=== PATIENT | female | born 1960 | race Caucasian/White ===

== ENCOUNTER 2016-11-12 16:38 | Emergency (ER) | payer OTHER ==
--- OUTSIDE RECORDS SUMMARY | 2016-11-12 16:41 | XMS | Clinical Summary ---
:1960 Author Organization [facility] Address [address] [place] [address] Phone Care Team Providers Name Role Phone , Primary Care Provider Unavailable Allergies Not on File Current Medications Not on file Active Problems Not on file Social History Tobacco Use Types Packs/Day Years Used Date Never Assessed Sex Assigned at Date Recorded Not on file Last Filed Vital Signs Not on file Plan of Treatment Not on file Results Not on filefrom Last 3 Months
== END 2016-11-12 18:19 | disposition left against medical advice (07) ==
LOC: ERS 16:38
DX: Z53.21 Procedure and treatment not carried out due to patient leaving prior to being seen by health care provider (principal)
CPT/HCPCS: 87081; 87430

== ENCOUNTER 2016-11-13 13:15 | Emergency (ER) | payer OTHER ==
--- OUTSIDE RECORDS SUMMARY | 2016-11-13 13:17 | XMS | Clinical Summary ---
:1960 Author Organization [facility] Address [address] [place] [address] Phone Care Team Providers Name Role Phone [...]
[2016-11-13 14:21] LABS: #Basophils 0.1 thou/uL (0.0-0.2); #Eosinphils 0.1 thou/uL (0.0-0.7); #Lymphocytes 1.5 thou/uL (1.20-3.40); #Monocytes 0.7 thou/uL (0.11-0.59); #Neutrophils 5.9 thou/uL (1.40-6.50); %Basophils 1.1 % (0.0-1.0); %Eosinophils 0.9 % (0.0-10.0); %Lymphocytes 18.6 % (21.0-51.0); Mean Platelet Volume 6.3 fL (7.4-10.4); Red Blood Cell (RBC) Count 4.09 mill/uL (4.20-5.40); White Blood Cell (WBC) Count 8.3 thou/uL (4.8-10.8)
[2016-11-13 14:33] LABS: Macrocytosis SLIGHT = 6-15 cells (100X) (0-5/hpf)
[2016-11-13 14:34] LABS: ALT (SGPT) 10 U/L (8-55); AST (SGOT) 31 U/L (5-34); Alkaline Phosphatase 84 U/L (40-150); Anion Gap 18 mmol/L (10-20); BUN (Urea Nitrogen) 13 mg/dL (9.8-20.1); Bilirubin, Total 0.9 mg/dL (0.2-1.2); Calc. Creatinine Clearance 0 mL/min (70-130); Calcium 9.9 mg/dL (7.8-10.44); Carbon Dioxide 26 mmol/L (22-29); Chloride 96 mmol/L (98-107); Estimated GFR-MDRD 90; Globulin 3.4 g/dL (2.4-3.5); Lipase 11 U/L (8-78)
--- NOTE | 2016-11-13 16:46 | RAD ---
SINGLE VIEW OF CHEST: Date: 11/13/16 COMPARISON: None. HISTORY: Vomiting for 3-4 days with productive cough. FINDINGS: Single view of the chest shows a normal sized cardiomediastinal silhouette. There is no evidence of consolidation, mass, or pleural effusion. Hardware is seen in the cervical spine. IMPRESSION: No evidence of acute cardiopulmonary disease. POS: [facility]
[2016-11-13] MEDS ORDERED: Ondansetron ODT 4 MG TAB ONE (16:51)
[2016-11-13] MEDS ORDERED: Ketorolac Tromethamine 30 MG/ML VIAL ONE (16:51)
[2016-11-13] MEDS ORDERED: Dexamethasone 4 mg/ml Vial ONE (16:51)
[2016-11-13 17:12] LABS: Troponin I Less than 0.010 ng/mL (< 0.028)
[2016-11-13] MEDS ORDERED: cloNIDine HCl 0.1 MG TAB ONE (17:55)
== END 2016-11-13 19:23 | disposition home or self-care (01) ==
LOC: ERS 13:15
DX: I10 Essential (primary) hypertension (principal); J40 Bronchitis, not specified as acute or chronic; F17.210 Nicotine dependence, cigarettes, uncomplicated
CPT/HCPCS: 36415; 71010; 80053; 82553; 83690; 84484; 85025; 87081; 87430; 96372; J1100; J1885; Q0162

== ENCOUNTER 2017-05-04 16:09 | Outpatient (CLI) | payer OTHER | END 2017-05-04 16:10 | disposition home or self-care (01) | LOC: BICMAMMO 16:09 | PROVIDERS: ATTEND Family Medicine | DX: Z12.31 Encounter for screening mammogram for malignant neoplasm of breast (principal) | CPT/HCPCS: 77063; 77067 ==

== ENCOUNTER 2017-05-08 09:35 | Outpatient (CLI) | payer OTHER | END 2017-05-08 09:36 | disposition home or self-care (01) | LOC: BICMAMMO 09:35 | PROVIDERS: ATTEND Family Medicine | DX: R92.8 Other abnormal and inconclusive findings on diagnostic imaging of breast (principal) | CPT/HCPCS: G0279 ==

== ENCOUNTER → 2017-05-16 | Day surgery (SDC) | payer OTHER | LOC: BICULT 11:17 | PROVIDERS: ATTEND Family Medicine | PROC: 0HBT3ZX Excision of Right Breast, Percutaneous Approach, Diagnostic (ICD-10-PCS; principal; 2017-05-16) | DX: D24.1 Benign neoplasm of right breast (principal); Z88.0 Allergy status to penicillin | CPT/HCPCS: 19083; 88305 ==

== ENCOUNTER 2018-05-21 08:00 | Emergency (ER) | payer BC ==
[2018-05-21] MEDS ORDERED: Ketorolac Tromethamine 60 MG/2 ML VIAL ONE (08:39)
--- NOTE | 2018-05-21 09:17 | RAD ---
THORACIC SPINE 3 VIEWS: INDICATION: Trauma with back pain. FINDINGS: There is an ACDF at C7-T1 and C3-4. There is multilevel mild degenerative disk disease. There is sl ight rightward curvature of the thoracic spine centered at T12. Visualized lungs are clear. No acut e fracture is evident. IMPRESSION: Mild spondylosis of the thoracic spine. Postoperative change of the cervicothoracic junction and cer vical spine. POS: [facility]
--- NOTE | 2018-05-21 09:20 | CT ---
FExam: CT cervical spine without contrast HISTORY: Trauma. Pain. Status post fall. COMPARISON: None FINDINGS: No craniocervical dissociation. Appropriate alignment of the lateral masses of C1 and C2. A ppropriate alignment of the facets. Intact odontoid process Extensive cervical fusion from C3 through T1. No laury hardware lucency. Cervical spine vertebral body height is maintained. No fracture. Soft tissue neck structures are unremarkable. Varying degrees of central canal stenosis and neural foraminal narrowing on the basis of degenerative change. Evaluation is limited due to technique There is straightening of the upper mediastinal fat, nonspecific Because lung apices are unremarkable Straightening of normal cervical lordosis is preserved to be due to cervical fusion. There is concern for ligament injury, consider MRI. IMPRESSION: 1. Uncomplicated cervical fusion. Straightening of normal cervical lordosis as detailed above. If th ere is concern for ligamentous injury, consider MRI 2. Cervical spine vertebral body height is maintained. No fracture. 3. Nonspecific stranding of the upper mediastinal fat, probably paraesophageal in location.
== END 2018-05-21 09:30 | disposition home or self-care (01) ==
LOC: ERS 08:00
DX: S16.1XXA Strain of muscle, fascia and tendon at neck level, initial encounter (principal); S29.012A Strain of muscle and tendon of back wall of thorax, initial encounter; I10 Essential (primary) hypertension; F17.210 Nicotine dependence, cigarettes, uncomplicated; Z79.899 Other long term (current) drug therapy; W01.198A Fall on same level from slipping, tripping and stumbling with subsequent striking against other object, initial encounter
CPT/HCPCS: 72072; 72125; 96372; J1885

== ENCOUNTER 2019-05-11 19:45 | Emergency (ER) | payer BC ==
[2019-05-11] MEDS ORDERED: diphenhydrAMINE 50 MG/ML VIAL ONE (19:48)
[2019-05-11] MEDS ORDERED: Lorazepam 2 MG/ML VIAL ONE (19:48)
--- NOTE | 2019-05-11 20:10 | RAD ---
EXAM: Single view of the chest HISTORY: Shortness of breath and cough COMPARISON: 11/13/2016 FINDINGS: Single view of the chest shows a normal sized cardiomediastinal silhouette. There is no lurdes dence of consolidation, mass, or pleural effusion. Hardware seen in the spine. IMPRESSION: No evidence of acute cardiopulmonary disease
[2019-05-11 20:14] LABS: Actual Bicarbonate (HCO3a) 21.1 mEq/L (22-28); Analyzer IN Cardio ER; Base Excess (BEa) -4.1 mEq/L (-2.0 to +3.0); CO2 Tension 39.1 mmHg (35.0-45.0); Calcium, Ionized 1.12 mmol/L (1.12-1.30); Carboxyhemoglobin (COHb) 4.9 gm% (0.0-3.0); Hemoglobin (Hb) 14.4 g/dL (12.0-16.0); O2 Tension (PaO2) 69.7 mmHg (80.0-100.0); Potassium - ABG Lab 3.62 mmol/L (3.70-5.30); pH, Arterial 7.35 (7.35-7.45)
[2019-05-11 20:21] LABS: Hemoglobin 14.9 g/dL (12.0-16.0); Mean Corpuscular HGB CONC 35.9 g/dL (32.0-36.0); Mean Corpuscular Hemoglobin 35.6 pg (27.0-31.0); Mean Corpuscular Volume 99.2 fL (78.0-98.0); Mean Platelet Volume 6.8 fL (7.4-10.4); Platelet Count 444 thou/uL (130-400); RBC Distribution Width 11.9 % (11.5-14.5); Red Blood Cell (RBC) Count 4.18 mill/uL (4.20-5.40); White Blood Cell (WBC) Count 11.1 thou/uL (4.8-10.8)
[2019-05-11] MEDS ORDERED: Azithromycin 500 MG VIAL ONE (20:25)
[2019-05-11] MEDS ORDERED: cefTRIAXone\\ROCEPHIN 1 GM VIAL ONE (20:25)
[2019-05-11 20:44] LABS: Eosinophils 2 % (0-10); Lymphocytes 54 % (21-51); MDiff Complete? YES; Monocytes 3 % (0-10); Neutrophil 41 % (42-75); Platelet Morphology Comment Appears Increased
[2019-05-11 20:46] LABS: ALT (SGPT) Less than 7 U/L (8-55); AST (SGOT) 19 U/L (5-34); Albumin 4.4 g/dL (3.5-5.0); Alkaline Phosphatase 86 U/L (40-110); Anion Gap 16 mmol/L (10-20); BUN (Urea Nitrogen) 14 mg/dL (9.8-20.1); Bilirubin, Total 0.2 mg/dL (0.2-1.2); CK (CPK) 124 U/L (29-168); Calc. Creatinine Clearance 0 mL/min (70-130); Calcium 9.1 mg/dL (7.8-10.44); Carbon Dioxide 23 mmol/L (22-29); Chloride 108 mmol/L (98-107); Estimated GFR-MDRD 86; Glucose 84 mg/dL (70-105); Potassium 3.8 mmol/L (3.5-5.1); Protein, Total 7.4 g/dL (6.0-8.3); Sodium 143 mmol/L (136-145)
[2019-05-12 02:26] LABS: ALV-art Gradient 31.155 (0-20); Puncture Site LRA
== END 2019-05-11 21:58 | disposition home or self-care (01) ==
LOC: ERS 19:45
DX: J44.1 Chronic obstructive pulmonary disease with (acute) exacerbation (principal); I10 Essential (primary) hypertension; F17.210 Nicotine dependence, cigarettes, uncomplicated; Z79.899 Other long term (current) drug therapy
CPT/HCPCS: 36415; 71045; 80053; 80307; 82550; 82805; 83605; 84484; 85025; 87040; 87804; 93005; 94664; 96360; 96361; 96365; 96375; J0456; J0696; J1200; J2060